=== PATIENT | male | born 1960 | race Two or more races ===

== ENCOUNTER 2019-01-23 02:40 | Emergency (ER) | payer SELFPAY ==
[~2019-01-23] VITALS: Ht 177.8 cm; Wt 79.4 kg
[2019-01-23 02:48] VITALS: BP 138/85
== END 2019-01-23 05:46 | disposition home or self-care (01) ==
LOC: ER 02:42
DX: M79.672 Pain in left foot (principal); M79.671 Pain in right foot; Z59.0 Homelessness

== ENCOUNTER 2019-10-15 23:00 | Emergency (ER) | payer MEDICAID, OTHER ==
[~2019-10-15] VITALS: Ht 167.6 cm; Wt 74.4 kg
--- NOTE | 2019-10-15 23:19 | NUR ---
SEEN AND EXAMINED BY
--- NOTE | 2019-10-15 23:24 | NUR ---
PATIENT CAME TO ER BED 11 C/O RIGHT FOREARM WOUND. PATIENT STATES THAT HE IS TAKING KEFLEX 500MG FOR 2x DAYS. PATIENT STATES THAT HE WAS RECENTLY DISCHARGED FROM [facility]. AAOX4. NO SOB. BREATHING EVENLY AND UNLABORED ON ROOM AIR. CONNECTED TO MONITOR.
[2019-10-15] MEDS ORDERED: MORPHINE SULFATE INJ 4 MG/ML DISP.SYRIN ONE (23:26)
[2019-10-15] MEDS ORDERED: MORPHINE SULFATE INJ 2 MG/ML DISP.SYRIN IV ONE (23:30)
--- NOTE | 2019-10-15 23:37 | NUR ---
PATIENT CURRENTLY REFUSING IV INSERTION AND CT.
--- NOTE | 2019-10-15 23:42 | NUR ---
PATIENT REFUSING BLOOD DRAW.
[2019-10-16] MEDS ORDERED: LORAZEPAM 1 MG TABLET PO ONE
[2019-10-16] MEDS ORDERED: oxyCODONE/APAP (5/325 MG) 1 UDTAB TABLET ONE (01:02)
--- NOTE | 2019-10-16 01:20 | NUR ---
Patient refused to sign discharge paperwork.
[2019-10-16 01:24] VITALS: BP 133/77
[2019-10-16] MEDS ORDERED: oxyCODONE/APAP (5/325 MG) 1 UDTAB TABLET PO ONE ×2 (01:30)
== END 2019-10-16 01:30 | disposition home or self-care (01) ==
LOC: ER 23:04
DX: L02.512 Cutaneous abscess of left hand (principal); Z59.0 Homelessness
CPT/HCPCS: 99284; J2270; 80048-TC; 80076-TC; 85025-TC

== ENCOUNTER 2019-12-06 01:16 | Inpatient (IN) | payer OTHER ==
[~2019-12-06] VITALS: Ht 170.2 cm; Wt 70.3 kg
--- NOTE | 2019-12-06 01:26 | NUR ---
BIBRA 86 FOR LFA SWELLING AND REDNESS. PER PT "ALLERGIC REACTION" ADMITTED TO INJECTING METH ON THE AREA.
[2019-12-06] MEDS ORDERED: VANCOMYCIN 1 GM in IV D5W 250 ML IV ONE (01:30)
--- NOTE | 2019-12-06 01:40 | NUR ---
PT REFUSED IV LINE AND BLOOD DRAW. MADE AWARE
[2019-12-06] MEDS ORDERED: MORPHINE SULFATE INJ 2 MG/ML DISP.SYRIN IV ONE ×2 (02:00→04:00)
[2019-12-06] MEDS ORDERED: VANCOMYCIN 1 GM VIAL ONE (02:06)
[2019-12-06] MEDS ORDERED: MORPHINE SULFATE INJ 2 MG/ML DISP.SYRIN ONE (02:07)
[2019-12-06 02:31] LABS: BASOPHILS % (AUTO) 0.8 % (0.0-2.0); EOSINOPHILS % (AUTO) 2.2 % (0.0-6.0); HEMATOCRIT 25 % (39-51); HEMOGLOBIN 7.7 g/dL (13.5-17.5); LYMPHOCYTES # (AUTO) 0.8 /CMM (0.8-4.8); LYMPHOCYTES % (AUTO) 16.6 % (20.0-44.0); MEAN CORPUSCULAR HGB CONC 31 g/dl (31.0-36.0); MEAN CORPUSCULAR VOLUME 68 fL (80-96); MONOCYTES # (AUTO) 0.5 /CMM (0.1-1.30); MONOCYTES % (AUTO) 11.9 % (2.0-12.0); NEUTROPHILS # (AUTO) 3.2 /CMM (1.8-8.9); NEUTROPHILS % (AUTO) 68.5 % (43.0-81.0); PLATELET COUNT (AUTO) 103 /CMM (150-450); RED BLOOD CELL COUNT(AUTO) 3.65 MIL/uL (4.5-6.0); WHITE BLOOD COUNT (AUTO) 4.6 K/uL (4.3-11.0)
[2019-12-06 02:32] LABS: CALCIUM, SERUM 8.2 mg/dL (8.5-10.1); CREATININE 0.9 mg/dL (0.6-1.3); POTASSIUM 3.9 mmol/L (3.5-5.1)
[2019-12-06] MEDS ORDERED: IOHEXOL-300 100 ML VIAL IV ONE (03:23)
[2019-12-06] MEDS ORDERED: IV NS 0.9% 250 ML IV ONE (03:23)
[2019-12-06] MEDS ORDERED: MORPHINE SULFATE INJ 4 MG/ML DISP.SYRIN ONE (03:57)
--- NOTE | 2019-12-06 04:03 | NUR ---
SPOKE TO YUE FROM [employer]. VERBAL AUTH. CALL BACK #[phone]. FAX [phone].
--- NOTE | 2019-12-06 04:11 | NUR ---
DR. ECHAVARRIA PAGED PER ER ORDER.
--- NOTE | 2019-12-06 04:16 | NUR ---
REPORT GIVEN TO TARUN ON THIRD FLOOR
[2019-12-06] MEDS ORDERED: MAGNESIUM HYDROXIDE 30 ML UDC PO PRN (04:30)
[2019-12-06] MEDS ORDERED: MAG HYDROX/AL HYDROX/SIMETH 30 ML UDC PO PRN (04:30)
[2019-12-06] MEDS ORDERED: Z GUARD REMEDY 2 OZ OINT TP PRN (04:30)
[2019-12-06] MEDS ORDERED: ZOLPIDEM TARTRATE 5 MG TABLET PO PRN (04:30)
[2019-12-06] MEDS ORDERED: ACETAMINOPHEN 325 MG TABLET PO PRN (04:30)
[2019-12-06] MEDS ORDERED: ONDANSETRON HCL/PF 4 MG/2 ML VIAL IVP PRN (04:30)
[2019-12-06 04:40] VITALS: BP 167/95
--- NOTE | 2019-12-06 04:43 | NUR ---
PT WAS TRANSFERRED TO THE THIRD FLOOR IN STABLE CONDITION
[2019-12-06] MEDS: IV 1/2NS 1000 ML 1,000 ML IV PRN (04:49)
[2019-12-06 05:00] VITALS: BP 167/95
--- NOTE | 2019-12-06 05:00 | NUR ---
MS HOURLY ASSOCIATE NOTES RECEIVED PATIENT VIA WHEELCHAIR FROM ER, ALERT AND ORIENTED X 3. AMBULATORY, VERBALLY RESPONSIVE. BREATHING REGULAR AND UNLABORED ON ROOM AIR. RIGHT FOREARM G20 IV LINE INTACT AND PATENT, FLUSHING WELL WITH NO BLEEDING OR S/S OF INFILTRATION NOTED. BODY ASSESSMENT DONE, SEEN WITH LEFT FOREARM SWELLING, RIGHT FOREARM AND LEFT EAR DRY SCABS. PHOTO TAKEN, ATTACHED TO CHART. BELONGINGS AND VITAL SIGNS CHECKED BY SUPERVISOR CARBON PAPER COATING. DENIES SUICIDAL IDEATION, PAIN/DISCOMFORT AT THIS TIME. BED LOW AND LOCKED ON SEMI FOWLERS POSITION. CALL LIGHT IN REACH. WILL CONTINUE TO MONITOR.
[2019-12-06] MEDS ORDERED: PIPERACILLIN /TAZOBACTAM 3.375 G VIAL IV ONE (05:05)
[2019-12-06] MEDS ORDERED: PIPERACILLIN /TAZOBACTAM 3.375 G in IV NS 0.9% 50 ML IV SCH (06:00)
--- NOTE | 2019-12-06 06:40 | NUR ---
MS RN CLOSING NOTES PATIENT IN BED ALERT AND ORIENTED X 2-3, EPISODES OF HALLUCINATION TELLING THAT THERE ARE BUGS AND SPIDER INSIDE HIS BODY. AFEBRILE WITH NO S/S OF DISTRESS OBSERVED. RIGHT FOREARM G20 PATENT AND INFUSING WELL. NO COMPLAINTS OF PAIN/DISCOMFORT REPORTED AT THIS TIME. BED LOW AND LOCKED ON SEMI FOWLERS POSITION. CALL LIGHT IN REACH. WILL ENDORSE TO MORNING SHIFT FOR NIKO.
[2019-12-06] MEDS ORDERED: FEE PK DOSING 1 MIN EA MC ONE (07:30)
--- NOTE | 2019-12-06 07:30 | NUR ---
m/s interior design assistant: md visit seen and examined by dr. wright at this time.
[2019-12-06 08:00] VITALS: BP 141/84
[2019-12-06] MEDS: HYDROCODONE/APAP 5/325MG 1 EACH TABLET PO PRN ×2 (09:07→17:41)
--- NOTE | 2019-12-06 09:07 | NUR ---
rn notes administered narco 5/325 mg po prn for generalized pain 04/22 per patient request, v/s taken bp-141/84, p-77, r-18. encouraged to increase fluid intake. continued monitoring.
--- NOTE | 2019-12-06 12:00 | NUR ---
RN NOTES PATIENT RESTING IN THE BED, MEDICATION WERE ADMINISTERED FOR PAIN EFFECTIVE, ADMINISTERED SCHEDULED MEDICATION. PATIENT AMBULATORY SELF CARE, SAFETY PRECAUTION MAINTAINED ALL THE TIME.
[2019-12-06] MEDS: ZOSYN IVPB 3.375 G in IV D5W 50ml IV SCH ×3 (13:30→18:00)
[2019-12-06] MEDS: VANCOMYCIN 1 GM in IV D5W 250ml IV SCH (13:42)
[2019-12-06 17:00] VITALS: BP 153/92
--- NOTE | 2019-12-06 17:41 | NUR ---
RN NOTES ADMINISTERED NARCO 5/325 MG PO PRN FOR GENERALIZED PAIN 02/20 PER PATIENT REQUEST, V/S TAKEN BP 153/92, P-78, R-18. CONTINUED MONITORING.
--- NOTE | 2019-12-06 18:27 | NUR ---
RN NOTES PATIENT REFUSED ZOSYN AT THIS TIME DECIDED TO SIGN AMA.
--- NOTE | 2019-12-06 19:35 | NUR ---
MS RN OPENING NOTES RECEIVED PATIENT FROM MORNING, ALERT AND ORIENTED X 3. AMBULATORY, VERBALLY RESPONSIVE. BREATHING REGULAR AND UNLABORED ON ROOM AIR. RIGHT FOREARM G20 IV LINE INTACT AND PATENT, FLUSHING WELL WITH NO BLEEDING OR S/S OF INFILTRATION NOTED. DENIES SUICIDAL IDEATION, PAIN/DISCOMFORT AT THIS TIME. BED LOW AND LOCKED ON SEMI FOWLERS POSITION. CALL LIGHT IN REACH. WILL CONTINUE TO MONITOR.
[2019-12-06 20:00] VITALS: BP 146/72
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
[2019-12-07] MEDS: VANCOMYCIN 1 GM in IV D5W 250ml IV SCH ×2 (02:00→14:00)
[2019-12-07] MEDS: ZOSYN IVPB 3.375 G in IV D5W 50ml IV SCH ×5 (06:00→17:05)
--- NOTE | 2019-12-07 06:30 | NUR ---
MS RN NOTES REFUSED ALL DUE ANTIBIOTICS, RISK AND BENEFITS EXPLAINED 3X. PER PATIENT HE ALREADY HAD FEW DOSES YESTERDAY AND VERBALIZED "IT SHOULD BE ENOUGH FOR ME". CHARGE NURSE AND ON-CALL MD NOTIFIED.
--- NOTE | 2019-12-07 06:35 | NUR ---
MS RN CLOSING NOTES PATIENT IN BED ALERT AND ORIENTED X 2-3, NON-COMPLIANT. AFEBRILE WITH NO S/S OF DISTRESS OBSERVED. RIGHT FOREARM G20 PATENT AND FLUSHING WELL. NO COMPLAINTS OF PAIN/DISCOMFORT REPORTED AT THIS TIME. BED LOW AND LOCKED ON SEMI FOWLERS POSITION. CALL LIGHT IN REACH. WILL ENDORSE TO MORNING SHIFT FOR NIKO.
[2019-12-07] MEDS: HYDROCODONE/APAP 5/325MG 1 EACH TABLET PO PRN ×2 (07:53→17:13)
[2019-12-07 08:00] VITALS: BP 145/63
--- NOTE | 2019-12-07 08:00 | NUR ---
MS RN OPENING NOTES RECEIVED PATIENT IN BED AWAKE, ALERT AND ORIENTED X 3. AMBULATORY, VERBALLY RESPONSIVE. NO CARDIAC OR RESPIRATORY DISTRESS NOTED. NO SOB NOTED. SATURATING WELL ON ROOM AIR. BREATHING REGULAR AND UNLABORED. IV ACCESS NOTED ON RIGHT FOREARM G20 IV LINE INTACT AND PATENT, FLUSHING WELL WITH NO BLEEDING OR S/S OF INFILTRATION NOTED. SAFETY PRECAUTIONS IN PLACE. BED LOW AND LOCKED ON SEMI FOWLERS POSITION. CALL LIGHT IN REACH. WILL CONTINUE TO MONITOR.
--- NOTE | 2019-12-07 09:00 | NUR ---
REFUSING IV FLUIDS PT REFUSING IV FLUIDS, HE ASKED TO BE UNHOOKED FROM THE IV, BUT HE WAS GETTING UPSET WHEN I TOLD HIM THAT IT WAS HIS DOCTORS ORDERS FOR HIM TO RECEIVE IV FLUIDS. EDUCATED PT REGARDING THE RISKS AND BENEFITS AND IMPORTANCE OF GEETING FLUIDS. HOWEVER HE STILL STRONGLY REFUSED, STATED "NO. NOT RIGHT NOW. MAYBE LATER." WILL CONT. TO RE-OFFER.
[2019-12-07] MEDS ORDERED: ACETAMINOPHEN ES 500 MG TABLET PO PRN (09:30)
[2019-12-07] MEDS ORDERED: DEXTROSE 50%-WATER 50 ML DISP.SYRIN IV PRN (09:30)
[2019-12-07] MEDS ORDERED: INSULIN REGULAR, HUMAN 100 UNIT/ML 3 ML VIAL SQ PRN (09:30)
[2019-12-07 10:57] LABS: BASOPHILS % (AUTO) 0.5 % (0.0-2.0); EOSINOPHILS % (AUTO) 2.1 % (0.0-6.0); HEMATOCRIT 28 % (39-51); HEMOGLOBIN 8.3 g/dL (13.5-17.5); LYMPHOCYTES # (AUTO) 0.7 /CMM (0.8-4.8); LYMPHOCYTES % (AUTO) 15.5 % (20.0-44.0); MEAN CORPUSCULAR HGB CONC 30 g/dl (31.0-36.0); MEAN CORPUSCULAR VOLUME 69 fL (80-96); MONOCYTES # (AUTO) 0.3 /CMM (0.1-1.30); MONOCYTES % (AUTO) 7.3 % (2.0-12.0); NEUTROPHILS # (AUTO) 3.2 /CMM (1.8-8.9); NEUTROPHILS % (AUTO) 74.6 % (43.0-81.0); PLATELET COUNT (AUTO) 113 /CMM (150-450); RED BLOOD CELL COUNT(AUTO) 3.98 MIL/uL (4.5-6.0); WHITE BLOOD COUNT (AUTO) 4.3 K/uL (4.3-11.0)
[2019-12-07 11:02] LABS: CREATININE 0.8 mg/dL (0.6-1.3); MAGNESIUM 1.9 mg/dL (1.8-2.4); PHOSPHORUS 3.1 mg/dL (2.5-4.9); POTASSIUM 3.8 mmol/L (3.5-5.1)
[2019-12-07 11:11] LABS: THYROID STIMULATING HORMONE 1.286 uIU/mL (0.358-3.74)
[2019-12-07] MEDS: BLOOD SUGAR DIAGNOSTIC 1 EACH STRIP IN SCH ×3 (11:47→22:31)
--- NOTE | 2019-12-07 12:00 | NUR ---
REFUSED ACCUCHECK PT REFUSED ACCUCHECK. EXPLAINED THE IMPORTANCE OF GETTING BLOOD SUGAR CHECKED ESPECIALLY THAT HE'S DIABETIC. EXPLAINED RISKS FOR HYPO AND HYPERGLYCEMIA. PT STILL REFUSED.
--- NOTE | 2019-12-07 12:11 | NUR ---
Social Service consult requested by MD for homelessness. Per MD notes pt is a 59 [id number] with history of homelessness, drug use, skin popping, recurrent cellulitis presents to the ED with c/o swelling and pain in the left forearm that he states might be an allergic reaction but acknowledges it is more likely cellulitis. Patient states that he has had cellulitis in that area in the past. He has noted recent progressive swelling and pain in that area. Endorses skin popping with meth in recent days into that area. Initially, the patient stated that he did not want any interventions done except for pain medication. Additionally stating that he might need the area incised and drained. SUPERVISOR SHAVING AND SPLITTING conducted chart review and met with the pt bedside. SUPERVISOR SHAVING AND SPLITTING introduced self and purpose of the visit. Pt is alert and oriented x 4. Pt is calm and cooperative with SW. Pt reports, he resides with friends at an encampment located on [address] in [place]. Pt plans to return back to his encampment upon discharge. Pt receives SSI and food stamps. Pt reports, he drinks alcohol every now and then. Pt has a history of methamphetamine use and last used 4 to 5 days ago. Pt states, he smokes Marijuana daily. Pt is a non-smoker. Pt denies any history of psychiatric diagnosis or hospitalizations. Pt currently denies suicidal and homicidal ideations. SUPERVISOR SHAVING AND SPLITTING provided pt with Homeless Resource List Related to COVID-19. SUPERVISOR SHAVING AND SPLITTING provided pt with active listening, supportive counseling, validation of feelings and positive coping skills. Pt will require a TAP card upon discharge. SUPERVISOR SHAVING AND SPLITTING updated pt's bedside LOUIE Hill and MS3 ROMINA Jenkins regarding pt's discharge plan. Medical Dairy Equipment Repairer is available as needed.
[2019-12-07] MEDS ORDERED: HYDROCODONE/APAP 5/325MG 1 EACH TABLET PO PRN ×2 (13:00→17:00)
[2019-12-07 16:00] VITALS: BP 128/84
[2019-12-07] MEDS: IV 1/2NS 1000 ML 1,000 ML IV PRN (16:02)
--- NOTE | 2019-12-07 17:00 | NUR ---
REFUSING IV FLUIDS PT REFUSING IV FLUIDS AGAIN. EDUCATED OT REGARDING RISKS, CONSEQUENCES AND NEGATIVE OUTCOMES OF NON COMPLIANT BEHAVIORS. STILL REFUSED.
--- NOTE | 2019-12-07 18:00 | NUR ---
CONSENT OBTAINED CONSENTS OBTAINED FOR PROCEDURE TOMORROW. FOR L FOREARM INCISION AND DRAINAGE WITH DEBRIDEMENT. EDUCATED PT TO KEEP NPO AFETER MIDNIGHT TONIGHT. PT AGREED.
--- NOTE | 2019-12-07 18:46 | NUR ---
MS RN CLOSING NOTES PATIENT IN BED AWAKE, ALERT AND ORIENTED X 3. AMBULATORY, VERBALLY RESPONSIVE. NO CARDIAC OR RESPIRATORY DISTRESS NOTED. NO SOB NOTED. SATURATING WELL ON ROOM AIR. BREATHING REGULAR AND UNLABORED. PT HAS EPISODES OF NON COMPLIANCE WITH MEDS AND TX. EDUCATED PT REGARDING THE RISKS, CONSEQUENCES, AND NEGATIVE OUTCOMES OF NON COMPLIANT BEHAVIORS. PT HAS A PROCEDURE TOMORROW FOR L FOREARM INCISION AND DRAINAGE WITH DEBRIDEMENT. CONSENT OBTAINED. EDUCATED PT TO KEEP NPO AFTER MN TONIGHT. PT UNDERSTOOD. IV ACCESS NOTED ON RIGHT FOREARM G20 IV LINE INTACT AND PATENT, FLUSHING WELL WITH NO BLEEDING OR S/S OF INFILTRATION NOTED. SAFETY PRECAUTIONS IN PLACE. BED LOW AND LOCKED ON SEMI FOWLERS POSITION. CALL LIGHT IN REACH. WILL ENDORSE TO NEXT SHIFT.
--- NOTE | 2019-12-07 19:10 | NUR ---
MS RN NOTES RECEIVED PT IN BED AWAKE AND ABLE TO MAKE NEEDS KNOWN. PT A/O X3. RESPIRATIONS EVEN AND UNLABORED WITH NO S/S OF ACUTE DISTRESS OR SOB NOTED. NO COMPLAINTS OF PAIN AT THIS TIME. SAFETY MEASURES IN PLACE WITH BED IN LOWEST LOCKED POSITION WITH SIDE RAILS UP X2. CALL LIGHT WITHIN REACH. WILL CONTINUE TO MONITOR.
--- NOTE | 2019-12-07 19:30 | NUR ---
MS RN NOTES PT REFUSING IV FLUIDS AT THIS TIME. WILL CONTINUE TO MONITOR.
--- NOTE | 2019-12-07 23:37 | NUR ---
MS RN NOTES PT REFUSING IV ANTIBIOTICS AT THIS TIME. PT STATES "THE ANTIBIOTICS DON'T MAKE ME FEEL WELL. THEY GIVE ME HEADACHES. I DON'T WANT THEM AT THIS TIME. MAYBE LATER." WILL CONTINUE TO MONITOR.
[2019-12-08] MEDS: VANCOMYCIN 1 GM in IV D5W 250ml IV SCH ×2 (02:00→14:56)
[2019-12-08] MEDS: ZOSYN IVPB 3.375 G in IV D5W 50ml IV SCH ×4 (06:00→12:09)
[2019-12-08 06:39] LABS: BASOPHILS % (AUTO) 0.8 % (0.0-2.0); EOSINOPHILS % (AUTO) 1.9 % (0.0-6.0); HEMATOCRIT 29 % (39-51); HEMOGLOBIN 9.1 g/dL (13.5-17.5); LYMPHOCYTES # (AUTO) 0.9 /CMM (0.8-4.8); LYMPHOCYTES % (AUTO) 18.7 % (20.0-44.0); MEAN CORPUSCULAR HGB CONC 31 g/dl (31.0-36.0); MEAN CORPUSCULAR VOLUME 69 fL (80-96); MONOCYTES # (AUTO) 0.4 /CMM (0.1-1.30); MONOCYTES % (AUTO) 7.4 % (2.0-12.0); NEUTROPHILS # (AUTO) 3.5 /CMM (1.8-8.9); NEUTROPHILS % (AUTO) 71.2 % (43.0-81.0); PLATELET COUNT (AUTO) 128 /CMM (150-450); RED BLOOD CELL COUNT(AUTO) 4.25 MIL/uL (4.5-6.0)
[2019-12-08 07:07] LABS: ALBUMIN 2.7 g/dL (3.4-5.0); BILIRUBIN,TOTAL 0.3 mg/dL (0.2-1.0); CALCIUM, SERUM 8.2 mg/dL (8.5-10.1); CREATININE 0.7 mg/dL (0.6-1.3); PHOSPHORUS 3.9 mg/dL (2.5-4.9)
[2019-12-08 07:08] LABS: THYROID STIMULATING HORMONE 1.206 uIU/mL (0.358-3.74)
--- NOTE | 2019-12-08 07:40 | NUR ---
MS PALMA OPENING NOTES RECEIVED PT IN BED, ASLEEP, EASILY AROUSED, A/O X4. PT ON RA, WITH NO ACUTE RESPIRATORY DISTRESS NOTED. PT DENIES ANY PAIN OR DISCOMFORT AT THIS TIME. PT DENIES ANY CONCERNS OR QUESTIONS AT THIS TIME. PT CURRENTLY ON NPO, SCHEDULED SURGERY FOR LEFT ANKLE ORIF. PT KEPT COMFORTABLE. CALL LIGHT KEPT WITHIN REACH. PT'S BED IN LOWEST, LOCKED POSITION WITH SRX3. WILL CONTINUE PLAN OF CARE. Addendum: 12/08/19 at 0805 by LYNDA NORIEGA RN WRONG DOCUMENTATION. WRONG PT.
[2019-12-08] MEDS: BLOOD SUGAR DIAGNOSTIC 1 EACH STRIP IN SCH ×3 (07:44→16:37)
--- NOTE | 2019-12-08 07:45 | NUR ---
MS RN OPENING NOTES RECEIVED PT IN BED, ASLEEP, EASILY AROUSED, A/O X4. PT ON RA, WITH NO ACUTE RESPIRATORY DISTRESS NOTED. PT DENIES ANY PAIN OR DISCOMFORT AT THIS TIME. PT DENIES ANY CONCERNS OR QUESTIONS AT THIS TIME. PT CURRENTLY ON NPO, SCHEDULED SURGERY FOR LFA WITH DR DIEHL AT 10 AM. PT KEPT COMFORTABLE. CALL LIGHT KEPT WITHIN REACH. PT'S BED IN LOWEST, LOCKED POSITION WITH SRX3. WILL CONTINUE PLAN OF CARE.
--- NOTE | 2019-12-08 07:47 | NUR ---
MS RN NOTES PT IN BED AWAKE AND ABLE TO MAKE NEEDS KNOWN. PT A/O X3. RESPIRATIONS EVEN AND UNLABORED WITH NO S/S OF ACUTE DISTRESS OR SOB NOTED THROUGHOUT SHIFT. NO COMPLAINTS OF PAIN AT THIS TIME. SAFETY MEASURES IN PLACE WITH BED IN LOWEST LOCKED POSITION WITH SIDE RAILS UP X2. CALL LIGHT WITHIN REACH. WILL ENDORSE TO ONCOMING NURSE FOR NIKO.
[2019-12-08 08:00] VITALS: BP 140/86
[2019-12-08] MEDS ORDERED: MIDAZOLAM HCL 2 MG/2ML VIAL ONE (10:10)
[2019-12-08] MEDS ORDERED: FENTANYL PF 250MCG/5ML AMPUL ONE (10:11)
[2019-12-08] MEDS ORDERED: FAMOTIDINE/PF INJ 20 MG/2 ML VIAL IV ONE (10:11)
--- NOTE | 2019-12-08 10:35 | NUR ---
MS RN NOTES PT LEFT THE UNIT AT 1030AM, WENT TO OR FOR SCHEDULED SURGERY FOR LFA I&D WITH DR. DIEHL.
[2019-12-08] MEDS ORDERED: LIDOCAINE HCL/MPF 1% 30 ML VIAL IJ ONE (10:37)
[2019-12-08] MEDS ORDERED: BUPIVACAINE MPF 0.5% W/EPI INJ 30 ML VIAL ONE (10:37)
--- NOTE | 2019-12-08 11:50 | NUR ---
MS RN NOTES PT CAME BACK FROM OR. I&D DONE TO LFA, DRESSING DRY AND INTACT. VS TAKEN, STABLE AND RECORDED.
[2019-12-08] MEDS: HYDROCODONE/APAP 5/325MG 1 EACH TABLET PO PRN (14:55)
--- NOTE | 2019-12-08 15:00 | NUR ---
MS RN NOTES CALLED AND SPOKE TO DR. DIEHL REGARDING DRESSING WITH BRIGHT RED BLOOD. MD INSTRUCTED HOW TO CHANGE DRESSING VIA PHONE. DRESSING CHANGED. PT AWARE AND OKAY WITH IT. ALSO, PT CONCERNED OF GOING HOME TODAY WELL. PER DR. SHANITA WESLEY TO FOLLOW UP OUTPATIENT WOUND CARE TEAM FOR WOUND CARE. RN TO FOLLOW UP WITH HOSPITALIST. WILL CONTINUE TO MONITOR.
[2019-12-08 16:00] VITALS: BP 144/77
--- NOTE | 2019-12-08 17:41 | NUR ---
MS RN AMA/DISCHARGE NOTES PT A/O X3-4. PT ON RA, WITH NO ACUTE RESPIRATORY DISTRESS NOTED. PT DENIES ANY PAIN OR DISCOMFORT AT THE TIME OF AMA/DISCHARGE. PIV TO RFA G20, REMOVED AND APPLIED DD. AMA FORM AND HOMELESS WAIVER FORM SIGNED BY PT. HOSPITALIST/AP AWARE OF AMA. ALL NEEDS AND CARE ATTENDED AND PROVIDED. PT MADE AWARE OF OUTPATIENT FOLLOW UP WOUND CARE. RN ALSO PROVIDED THE INFORMATION OF WOUND CENTER AND SURGEON FOR FOLLOW UP. CHARGE NURSE MADE AWARE WELL ABOUT DISCHARGE. TAP CARD PROVIDED WELL, PER PT HE'LL GO TO [facility]. PT LEFT THE UNIT AT 1740. RN ESCORTED PT TO THE [facility], PT AMBULATORY.
== END 2019-12-08 17:30 | disposition left against medical advice (07) | DRG 364 ==
LOC: ER 01:17 → MED 04:06
PROVIDERS: ADMIT Family Medicine; ATTEND Hospitalist
PROC: 0K980ZZ Drainage of Left Upper Arm Muscle, Open Approach (ICD-10-PCS; principal; 2019-12-08)
DX: L03.114 Cellulitis of left upper limb (principal); D69.6 Thrombocytopenia, unspecified; E11.65 Type 2 diabetes mellitus with hyperglycemia; E44.1 Mild protein-calorie malnutrition; D50.9 Iron deficiency anemia, unspecified; F17.210 Nicotine dependence, cigarettes, uncomplicated; D63.8 Anemia in other chronic diseases classified elsewhere; I10 Essential (primary) hypertension; Z59.0 Homelessness; Z91.19 Patient's noncompliance with other medical treatment and regimen; Z91.14 Patient's other noncompliance with medication regimen; L02.414 Cutaneous abscess of left upper limb; Z68.24 Body mass index [BMI] 24.0-24.9, adult
CPT/HCPCS: 36415; 73201-TC; 80048-TC; 80053-TC; 80061-TC; 80202-TC; 82962-TC; 83735-TC; 84100-TC; 84443-TC; 85025-TC; 85730-TC; 87040-TC; 87070-TC; 87075-TC; 87081-TC; A4216; A6253; A6403; A6407; G0378; J0690; J1815; J2250; J2270; J2405; J2543; J2704; J2765; J3010; J3370; J3490; J7050; J7060; Q9967

== ENCOUNTER 2019-12-09 09:29 | Emergency (ER) | payer OTHER ==
[~2019-12-09] VITALS: Ht 167.6 cm; Wt 77.1 kg
[2019-12-09 09:30] VITALS: BP 145/94
--- NOTE | 2019-12-09 10:00 | NUR ---
WOUND CLEANING AND DRESSING DONE BY ALIGNMENT TECHNICIAN.
--- NOTE | 2019-12-09 10:12 | NUR ---
Patient discharged to home in stable condition. Written and verbal after care instructions given. Patient verbalizes understanding of instruction.
== END 2019-12-09 10:19 | disposition home or self-care (01) ==
LOC: ER 09:33
DX: L02.414 Cutaneous abscess of left upper limb (principal); I10 Essential (primary) hypertension; E11.9 Type 2 diabetes mellitus without complications; Z59.0 Homelessness
CPT/HCPCS: 99282; A6403

== ENCOUNTER 2020-02-08 10:27 | Emergency (ER) | payer OTHER ==
[~2020-02-08] VITALS: Ht 167.6 cm; Wt 73.0 kg
--- NOTE | 2020-02-08 10:27 | NUR ---
CALLED TO TRIAGE NO ANSWER.
--- NOTE | 2020-02-08 10:38 | NUR ---
CALLED TO TRIAGE NO ANSWER.
[2020-02-08 11:21] VITALS: BP 135/76
[2020-02-08] MEDS ORDERED: IBUPROFEN 600 MG TABLET PO ONE ×2 (11:58→12:00)
--- NOTE | 2020-02-08 12:01 | NUR ---
Patient given written and verbal discharge instructions. Patient verbalizes understanding of instructions. Patient is ambulatory with steady gait. Refuses offer of [facility] placement. Patient given list of available shelters in surrounding area.
== END 2020-02-08 12:03 | disposition home or self-care (01) ==
LOC: ER 10:28
DX: M79.672 Pain in left foot (principal); M79.671 Pain in right foot; I10 Essential (primary) hypertension; E11.9 Type 2 diabetes mellitus without complications; Z60.2 Problems related to living alone; Z59.0 Homelessness

== ENCOUNTER 2020-05-13 13:26 | Emergency (ER) | payer OTHER ==
[~2020-05-13] VITALS: Ht 167.6 cm; Wt 86.2 kg
[2020-05-13] MEDS ORDERED: SULFAMETH/TRIMETH 800/160 MG 1 UDTAB TABLET ONE (14:26)
[2020-05-13 14:41] VITALS: BP 141/63
--- NOTE | 2020-05-13 14:56 | NUR ---
Patient given written and verbal discharge instructions. Patient verbalizes understanding of instructions. Patient is ambulatory with steady gait. Refuses offer of [facility] placement. Patient given list of available shelters in surrounding area. All belongings with the patient, name band removed, in proper clothing upon discharge.
[2020-05-13] MEDS ORDERED: SULFAMETH/TRIMETH 800/160 MG 1 UDTAB TABLET PO ONE (15:00)
== END 2020-05-13 14:58 | disposition home or self-care (01) ==
LOC: ER 13:34
DX: L08.9 Local infection of the skin and subcutaneous tissue, unspecified (principal); F19.10 Other psychoactive substance abuse, uncomplicated; R00.1 Bradycardia, unspecified; I10 Essential (primary) hypertension; E11.9 Type 2 diabetes mellitus without complications; F17.200 Nicotine dependence, unspecified, uncomplicated; Z59.0 Homelessness; Z60.2 Problems related to living alone